=== PATIENT | female | born 1960 | race Caucasian/White ===

== ENCOUNTER 2023-08-26 11:59 | Emergency (ER) | payer OTHER, SELFPAY ==
[2023-08-26 12:09] VITALS: BP 146/98
--- NOTE | 2023-08-26 13:15 | ED.GENMED ---
History of Present Illness
General
Chief Complaint: Visual Problem
Source: patient
Exam Limitations: none
Time Seen by Provider: 08/26/23 12:58
Nursing documentation reviewed up to this point in time: agreed with
Travel History
Have you had any contact with someone who has COVID-19?: No
Do you have any symptoms of coronavirus? Fever > 100 degrees, chills, cough, shortness of breath, sore throat, loss of taste or smell, muscle aches, or headache?: No
History of Present Illness
History of Present Illness:
Patient presents to ED secondary to intermittent left eye 'flashing light' sensation with increased floaters over the past 3 days. Denies headache. Denies blurred vision. Denies dizziness. Denies loss of sensation or weakness. Denies trauma.
Denies previous history of similar symptoms. Denies recent illness. Denies recent change in medications or diet.
Past History
Past History
ED Past Medical History: None
ED Past Surgical History: None
Social History
Tobacco: Non-smoker
Review of Systems
Review of Systems
Allergies reviewed?: Yes
All Other Systems: ROS reviewed and negative except as documented in HPI and ROS
Constitutional: Reports no symptoms
Skin: Reports no symptoms
Neurological: Reports other (floaters in eye with flashing sensation)
Phy Exam
Physical Exam
Physical Exam:
Physical Exam
General: no apparent distress, not acutely ill. afebrile
Head: nc/at. eomi
Neck: supple. no meningeal signs. no carotid bruit
Neuro: alert and oriented. no focal neurological deficits
Skin: no rash
Psychiatric: well kept. interactive and cooperative
Extremities: no edema. no calf tenderness.
Course
Orders/Labs/Results
Orders:
Orders
08/26/23 13:05
Visual Acuity- Treatment ONCE
Vital Signs
Initial and Last Documented VS:
Initial Vital Signs
Temp Pulse Resp BP Pulse Ox
97.9 F 64 18 146/98 97
08/26/23 12:09 08/26/23 12:09 08/26/23 12:09 08/26/23 12:08/26/23 12:09
Last Documented Vital Signs
Temp Pulse Resp BP Pulse Ox
97.9 F 64 18 146/98 97
08/26/23 12:09 08/26/23 12:09 08/26/23 12:09 08/26/23 12:09 08/26/23 12:09
MDM/Problems Addressed
MDM/Problems Addressed:
History and exam concerning for vitreous hemorrhage versus potential retinal detachment. As such, patient will be discharged from ED for an evaluation with water tester. An appt made for the patient with [facility] this
afternoon.
*Critical Care Note
Total Time (30-74mins, 75-104mins- exclusive of procedures): Not Applicable
ED Attending Note
-
Portions of this chart may have been created with voice recognition software.� Occasional wrong word or��sound alike� substitutions may have occurred due to the inherent limitations of voice recognition software.
Discharge Plan
Departure
Patient Disposition: Home (Routine Discharge)
Date of Disposition: 08/26/23
Time of Disposition: 14:13
Patient with high blood pressure during this ER visit?: Yes
Condition: Good
Discharge Problem:
Floaters in visual field
Instructions: Floaters in the Eye
Referrals:
Patti Nath MD [Active] -
Jeannine Jones PA-C [Family Provider] -
Activity Restrictions/Additional Instructions:
As discussed, please follow-up with referred water tester upon discharge for further evaluation treatment.
Interventions
Interventions:
*Risk Screen - Suicide Last Done: 08/26/23 14:15
*General Assessment Last Done: 08/26/23 14:15
*Neglect/Abuse Screening Last Done: 08/26/23 14:15
ED- Fall Risk Assessment Last Done: 08/26/23 14:15
*ED COVID-19 Vaccine History Last Done: 08/26/23 13:41
*Nursing Disposition Last Done: 08/26/23 14:15
ED- Neurological Assessment Last Done: 08/26/23 13:41
ED-EENT Assessment Last Done: 08/26/23 13:39
Discharge Date and Time
Discharge Date/Time: 08/26/23 14:15
Print Language: ESTONIAN
== END 2023-08-26 14:15 | disposition home or self-care (01) ==
LOC: EMR 11:59
PROVIDERS: EMERGENCY PHYSICIAN Emergency Medicine; FAMILY PHYSICIAN Physician Assistant Medical
DX: H43.392 Other vitreous opacities, left eye (principal); R03.0 Elevated blood-pressure reading, without diagnosis of hypertension; F32.A Depression, unspecified; Z90.81 Acquired absence of spleen; M54.30 Sciatica, unspecified side; Z88.1 Allergy status to other antibiotic agents
CPT/HCPCS: 99281

== ENCOUNTER → 2024-01-31 10:44 | Outpatient (REF) | payer OTHER, SELFPAY | LOC: HWRAD 10:44 | PROVIDERS: ATTENDING PHYSICIAN Physician Assistant Medical | DX: G89.29 Other chronic pain (principal) | CPT/HCPCS: 73564 ==

== ENCOUNTER 2024-03-27 06:27 | Day surgery (SDC) | payer OTHER, SELFPAY ==
[2024-03-12 13:19] VITALS: BMI 28.1
[2024-03-12 14:08] LABS: Hematocrit 40.7 % (37.0-47.0); Hemoglobin 13.3 g/dL (12.0-16.0); Mean Corp Hgb Conc. 32.7 g/dL (33.0-37.0); Mean Corpuscular Hgb 29.6 pg (27.0-31.0); Mean Corpuscular Volume 90.6 fL (81.0-99.0); Mean Platelet Volume 10.3 fL (7.4-10.4); Platelet Count 388 10^3/uL (130-400); Red Blood Cell Count 4.49 10^6/uL (4.20-5.40); Red Cell Dist. Width 14.3 % (11.5-14.5); White Blood Cell Count 9.8 10^3/uL (4.8-10.8)
[2024-03-27] VITALS (8 sets, daily range): BP systolic 99–133; BP diastolic 58–91; BMI 28.1
[2024-03-27] MEDS: TYLENOL 1000 MG PO (13:14)
[2024-03-27] MEDS: VANCOCIN 200 IV (13:30)
== END 2024-03-27 15:43 | disposition home or self-care (01) ==
LOC: SDS 06:27
PROVIDERS: ATTENDING PHYSICIAN Specialist; FAMILY PHYSICIAN Family Medicine
DX: S83.232A Complex tear of medial meniscus, current injury, left knee, initial encounter (principal); X58.XXXA Exposure to other specified factors, initial encounter; M94.262 Chondromalacia, left knee
CPT/HCPCS: 29881; 36415; 85027; 93005